=== PATIENT | female | born 1950 | race Caucasian/White ===

== ENCOUNTER 2016-05-25 10:48 | Outpatient (CLI) | payer OTHER | END 2016-05-25 10:49 | disposition home or self-care (01) | DX: Z12.31 Encounter for screening mammogram for malignant neoplasm of breast (principal) ==

== ENCOUNTER 2017-01-14 11:15 | Outpatient (CLI) | payer OTHER | END 2017-01-14 11:16 | disposition home or self-care (01) | LOC: DI 11:15 | PROVIDERS: ATTEND Internal Medicine Cardiovascular Disease | DX: I34.0 Nonrheumatic mitral (valve) insufficiency (principal); I49.3 Ventricular premature depolarization | CPT/HCPCS: 93306 ==

== ENCOUNTER 2017-11-29 10:22 | Outpatient (CLI) | payer OTHER ==
--- NOTE | 2017-11-29 15:12 | XRAY Report ---
Procedure Date: 11/29/2017 Accession Number: [id number] / [id number] Procedure: XRS - Knee 3 View BILAT CPT Code: FULL RESULT: EXAM: Knee 3 View BILAT DATE: 11/29/2017 10:44 AM CLINICAL HISTORY: BILATERAL KNEE PX COMPARISON: None. TECHNIQUE: 3 views each. FINDINGS: RIGHT KNEE: Bones: Marginal osteophytosis. No fractures or bone lesions. Joints: Tricompartmental osteoarthrosis with joint space narrowing most pronounced at the medial femoral tibial compartment and medial patellar facet articulation. The medial patellar facet demonstrates subchondral cyst formation. Soft Tissues: Normal. No soft tissue swelling. LEFT KNEE: Bones: Normal. No fractures or bone lesions. Joints: Tricompartmental osteoarthrosis with joint space narrowing most pronounced at the medial femoral tibial compartment and medial patellar facet articulation. Soft Tissues: Normal. No soft tissue swelling. 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 RADIA
== END 2017-11-29 10:23 | disposition home or self-care (01) ==
LOC: DI.S 10:22
PROVIDERS: ATTEND Physician Assistant
DX: M17.0 Bilateral primary osteoarthritis of knee (principal)

== ENCOUNTER 2019-04-18 11:11 | Outpatient (CLI) | payer MEDICARE ==
--- NOTE | 2019-04-18 12:54 | Mammography Report ---
Reason: ROUTINE MAMMO Procedure Date: 04/18/2019 Accession Number: [id number] / [id number] Procedure: MGS - Screening Mammo Dig Bilat CPT Code: Final Report FULL RESULT: EXAM: Screening Mammo Dig Bilat DATE: 04/18/2019 11:33 AM CLINICAL HISTORY: The patient is an asymptomatic 69-year-old female. No personal or family history breast cancer. TECHNIQUE: (B) - Bilateral CC and MLO views were obtained. COMPARISON: 05/25/2016 PARENCHYMAL PATTERN: (A) - The breasts demonstrate scattered fibroglandular densities bilaterally. FINDINGS: Vascular and few punctate parenchymal calcifications again noted. There are no suspicious masses, calcifications, or areas of distortion. IMPRESSION: Negative examination. BI-RADS category 1. RECOMMENDATION: (ANNUAL) - Recommend routine annual screening mammography. BI-RADS CATEGORY: (1) - Negative. STANDARD QUALIFYING STATEMENTS: 1. This examination was reviewed with the aid of Computer-Aided Detection (CAD). 2. A negative or benign imaging report should not preclude biopsy if clinically suspicious findings are present. 3. Dense breasts may obscure an underlying neoplasm.
== END 2019-04-18 11:12 | disposition home or self-care (01) ==
LOC: DI.S 11:11
PROVIDERS: ATTEND Physician Assistant
DX: Z12.31 Encounter for screening mammogram for malignant neoplasm of breast (principal)
CPT/HCPCS: 77067

== ENCOUNTER 2022-05-07 11:18 | Outpatient (CLI) | payer MEDICARE ==
--- NOTE | 2022-05-07 11:49 | XRAY Report ---
PROCEDURE: Lumbar Spine 2 View INDICATIONS: LOW BACK PAIN TECHNIQUE: 3 views of the lumbar spine were acquired. COMPARISON: None. FINDINGS: Bones: 5 [id number] vertebrae are present. There is mild levoscoliosis of thoracolumbar spine centered at T12 level and very mild compensatory rightward curvature of lumbar spine centered at L3 l evel. There is 5 mm retrolisthesis of L2 on L3, 7 mm anterolisthesis of L3 on L4 and 8 mm anterolist hesis of L4 on L5. 1.9 cm anterolisthesis of L5 on S1 is also seen. Bilateral pars defects at L5 leve l is likely present. No vertebral body compression fractures. Degenerative endplate changes, loss of disc height and bilateral facet arthrosis throughout lumbar spine is seen. No suspicious bony lesion s. Soft tissues: Overlying bowel gas pattern is normal. No suspicious soft tissue calcifications. IMPRESSION: 1. Lateral pars defects at L5 level with 1.9 cm anterolisthesis of L5 on S1. 2. Grade 1 spondylolisthesis at L2-3 through L4-5 levels as above. No acute compression fracture. 3. Mild scoliosis of thoracolumbar spine as above. No acute vertebral body compression fracture. Reviewed by: Yair Terry MD on 05/07/2022 11:48 AM PST Approved by: Yair Terry MD on 05/07/2022 11:48 AM PST Station ID: [id number]
== END 2022-05-07 11:19 | disposition home or self-care (01) ==
LOC: DI.S 11:18
PROVIDERS: ATTEND Nurse Practitioner Family
DX: M43.17 Spondylolisthesis, lumbosacral region (principal); M43.16 Spondylolisthesis, lumbar region; M41.9 Scoliosis, unspecified

== ENCOUNTER 2022-06-17 14:28 | Outpatient (CLI) | payer MEDICARE ==
--- NOTE | 2022-06-17 17:13 | DEXA Report ---
PROCEDURE: Dexa Spine and/or Hip INDICATIONS: SCREENING FOR OSTEOPOROSIS TECHNIQUE: Dual energy x-ray absorptiometry (DXA) was performed on a [employer] System. Regions measur ed are the AP Spine, femoral neck, and if needed forearm. COMPARISON: None. FINDINGS: Lumbar Spine: Bone Mineral Density 1.27 g/cm/cm,T score 0.7, Left Femoral Neck: Bone Mineral Density 0.91 g/cm/cm, T score -0.9, Left Hip: Bone Mineral Density 1.0 g/cm/cm,T score 0, (T score greater or equal to -1.0: NORMAL) (T score from -1.1 to -2.4: OSTEOPENIA) (T score less than or equal to -2.5 to: OSTEOPOROSIS) Impression: Bone mineral density within normal limits. Left femoral neck BMD is at the lower limit of normal. Patients with diagnosis of osteoporosis or osteopenia should have regular bone mineral density assess ment. For those eligible for Medicare, routine testing is allowed once every 2 years. Testing frequ ency can be increased for patients who have rapidly progressing disease or for those who are receivin g medical therapy to restore bone mass. Reviewed by: Silvio Darnell MD on 06/17/2022 5:12 PM PST Approved by: Silvio Darnell MD on 06/17/2022 5:12 PM PST Station ID: [id number]
== END 2022-06-17 14:29 | disposition home or self-care (01) ==
LOC: DI 14:28
PROVIDERS: ATTEND Nurse Practitioner Family
DX: Z13.820 Encounter for screening for osteoporosis (principal)